=== PATIENT | male | born 2000 | race Two or more races ===

== ENCOUNTER 2020-05-23 14:06 | Emergency (ER) | payer SELFPAY ==
--- NOTE | ~2020-05-23 | XR_ITS ---
EXAMINATION: XR chest 1V portable EXAM DATE: 05/23/2020 15:31 INDICATION: Feels Like Pin Pricks In His Chest For 8 Hours. TECHNIQUE: Portable AP frontal chest x-ray was obtained. There is no prior study for comparison. FINDINGS: The lungs are clear. There are no pleural effusions. The cardiomediastinal silhouette is within normal limits. There is no pneumothorax suspected. The bones and soft tissues are unremarkab le. IMPRESSION: Normal chest x-ray exam. Reviewed, dictated and finalized at location A. ANALYSIS IMPRESSION: Normal chest x-ray exam.
[2020-05-23 14:20] VITALS: BP 125/81; PULSE 90; RESP 14; TEMP 37.7; O2SAT 98
--- NOTE | 2020-05-23 15:06 | ECG_ITS ---
Measurements Intervals [place] Rate: 92 P: 66 [place]: 149 QRS: 66 QRSD: 86 T: 39 QT: 328 QTc: 407 Interpretive Statements SINUS RHYTHM BASELINE WANDER- V2-V3 BORDERLINE ECG Electronically Signed On 05-24-2020 8:09:46 [employer] by Keven Pena D.O.
[2020-05-23 15:56] LABS: Hematocrit 44.8 % (40.0-54.0); Hemoglobin 14.8 g/dL (14.0-18.0); Mean Corpuscular Hemoglobin 29.6 pg (27.0-31.0); Mean Corpuscular Volume 89.6 fL (78.0-102.0); Platelet Count Result 195 K/mm3 (150-420); Red Cell Distribution Width 13.6 % (11.6-14.4); White Blood Count 4.7 K/mm3 (4.8-10.8)
[2020-05-23 16:11] LABS: Partial Thromboplastin Time 28.7 SEC (23.90-30.70); Prothrombin Time 10.6 Seconds (9.50-12.10)
--- NOTE | 2020-05-23 16:39 | ED.GENADULT ---
HPI - General Adult General Chief complaint: Unspecified Stated complaint: 20YO male visiting from [place] here c/o single episode of chest pain during coughing this morning that resolved on its own. Pt states he has also had mild sensation or Nausea and loss of appetite, denies vomiting or abd pain. Related Data Home Medications Medication Instructions Recorded Confirmed No Home Medications 05/23/20 05/23/20 Allergies Allergy/AdvReac Type Severity Reaction Status Date / Time No Known Allergies Allergy Verified 05/23/20 14:35 Review of Systems Review of Systems: All systems reviewed & are unremarkable except as noted in HPI and below Exam Const: General: cooperative, healthy appearing, comfortable, well developed, alert, awake and Physically active Nutritional Appearance: well nourished and thin Orientation/consciousness: oriented to person, oriented to place, oriented to time and patient oriented x3 Limitations: no limitations HENMT: Head: normal to inspection Ears: hearing grossly normal bilaterally General nose exam: Normal external nose present Face and sinus: normal facial exam Mouth: Yes Normal oral and palatal mucosa present, Yes lip normal, Yes tongue normal and Yes moist mucous membranes Eyes: General: appearance normal, both eyes and all related structures Neck: Neck: normal visual inspection and full ROM Thyroid: thyroid normal Chest: Chest palpation & inspection: normal inspection of the chest Resp: Effort & Inspection: normal respiratory effort and able to speak in complete sentences Auscultation: clear to auscultation bilaterally Cardio: Jugular venous distension: no JVD Palpation: normal PMI Rate: regular rate Rhythm: regular rhythm Heart sounds: S1 normal heart sound present and S2 normal heart sound present Peripheral pulses: Peripheral pulses 2+ throughout GI: Inspection: normal to inspection GI Palp: No abdominal tenderness, Yes Soft to palpation, No Firmness to palpation present (GI), No Tenderness to palpation present (GI), No Guarding due to palpation present (GI) and No Rigid due to palpation Auscultation: normal bowel sounds Skin: General skin exam: normal color Lesions: no lesions Rashes: no rashes Trauma: no lacerations or abrasions Wounds: no wounds Hair: normal Nails: normal Neuro: General: oriented to person, oriented to place, oriented to time, patient oriented x3, gait normal and moves all extremities Cranial nerves: Yes CN's II-XII intact bilaterally Cognition (Neuro): normal cognition Speech: normal speech Gait exam (Neuro): Normal gait present Sensory Exam: normal sensation Extrem: General: normal to inspection Psych: Appearance: grossly normal Mental Status: mental status grossly normal Speech and movement: Normal speech and movement present Affect: normal affect Attitude: cooperative Thought process: Normal thought process present Thought content: Yes Normal thought content present Insight: Good insight present (Psych) Judgement: Good judgement present (Psych) Course Course Emergency Course: W/U normal, Negative for Rapid Covid. PCR is a send-out. Will ask patient to self quarantine till we call him. Vital Signs Vital signs: Vital Signs Temperature 99.8 F H 05/23/20 14:20 Pulse Rate 90 05/23/20 14:20 Respiratory Rate 14 05/23/20 14:20 Blood Pressure 125/81 05/23/20 14:20 Pulse Oximetry 98 05/23/20 14:20 Temperature 99.8 F H 05/23/20 14:20 Pulse Rate 90 05/23/20 14:20 Respiratory Rate 14 05/23/20 14:20 Blood Pressure 125/81 05/23/20 14:20 Pulse Oximetry 98 05/23/20 14:20 Medical Decision Making Medical Records Medical records reviewed: Yes I reviewed the patient's medical records. Vital Signs Vital Signs: Vital Signs Temperature 99.8 F H 05/23/20 14:20 Pulse Rate 90 05/23/20 14:20 Respiratory Rate 14 05/23/20 14:20 Blood Pressure 125/81 05/23/20 14:20 Pulse Oximetry 98 05/23/20 14:2
[2020-05-23 16:57] LABS: D Dimer 1.67 mg/L (0.19-0.50)
[2020-05-23 16:59] LABS: Band Neutrophils Percent 0 % (0-6); Monocytes Absolute Manual 0.09 K/mm3 (0.1-0.90); Monocytes Percent Manual 2 % (3-9); Neutrophils Absolute Manual 2.35 K/mm3 (1.3-6.7); Neutrophils Percent Manual 50 % (46-73); Platelet Estimate Adequate (Adequate); Total Cells Counted 100
[2020-05-23 17:00] LABS: Atypical Lymphocytes Present; Lymphocytes Absolute Manual 2.25 K/mm3 (1.1-4.5); Lymphocytes Percent Manual 48 % (18-44)
[2020-05-23 17:01] LABS: Influenza Control Valid (Valid); Troponin I 4.3 ng/L (0.00-60.4)
[2020-05-23 17:03] LABS: SARS-CoV-2 Ag Negative (Negative)
[2020-05-23 17:04] LABS: Appearance Urine Clear (Clear); Color Urine Light Yellow (Yellow); Glucose Urine UA Negative (Negative); Protein Urine Negative (Negative); Specific Grav Ur 1.025 (1.010-1.020); pH Urine 7.5 (5.0-8.0)
[2020-05-23 17:05] LABS: Add Urine Microscopic? NO; Bilirubin Urine Negative (Negative); Blood Urine Negative (Negative); Ketones Urine Negative (Negative); Leukocyte Esterase Ur Negative LEU/UL (Negative); Nitrate Urine Negative (Negative); Urobilinogen Urine Normal mg/dL (0.2-1.0)
[2020-05-23 17:10] VITALS: PULSE 88; RESP 18; O2SAT 98
== END 2020-05-23 17:10 | disposition home or self-care (01) ==
PROVIDERS: Emergency Provider Family Medicine
DX: J06.9 Acute upper respiratory infection, unspecified (principal); Z20.828 Contact with and (suspected) exposure to other viral communicable diseases
CPT/HCPCS: 71045; 81003; 84484; 85025; 85380; 85610; 85730; 87426; 87635; 87804; 93005; 99283; 99284; C9803; U0003